=== PATIENT | female | born 1985 | race Caucasian/White ===

== ENCOUNTER 2018-04-14 11:52 | Emergency (ER) | payer BC ==
[~2018-04-14] VITALS: Ht 170.2 cm; Wt 59.9 kg
[2018-04-14] MEDS ORDERED: LIDOCAINE VISC100 ML MUCOUS MEM (13:43)
[2018-04-14 14:06] VITALS: BP 115/69
== END 2018-04-14 16:04 | disposition home or self-care (01) ==
LOC: ER 11:52
DX: R07.0 Pain in throat (principal)